=== PATIENT | female | born 1935 | race Two or more races ===

== ENCOUNTER 2017-02-10 20:54 | Inpatient (IN) | payer MEDICAID ==
[~2017-02-10] VITALS: Ht 152.4 cm; Wt 54.0 kg
[2017-02-10] MEDS ORDERED: JANUVIA25 MG ORAL (21:27)
[2017-02-10] MEDS ORDERED: LOSARTAN POTASS50 MG ORAL (21:27)
[2017-02-10] MEDS ORDERED: AMLODIPINE BESY10 MG ORAL (21:27)
[2017-02-10] MEDS ORDERED: DIPHENHYDRAMINE25 M1 ORAL (21:27)
[2017-02-10 22:17] VITALS: BP 157/62
[2017-02-10] MEDS ORDERED: Enalaprilat 2.5mg/2ml Inj IV PRN (22:45)
[2017-02-10] MEDS ORDERED: Nitroglycerin Subl 0.4mg tab (Bottle Of 25) SL PRN (22:45)
[2017-02-10] MEDS ORDERED: Miralax 17gm pkt ORAL PRN (22:45)
[2017-02-10] MEDS ORDERED: DuoNeb 0.5-3(2.5)mg/3ml neb HHN PRN (22:45)
[2017-02-10] MEDS ORDERED: Diltiazem 25mg/5ml IV PRN (22:45)
[2017-02-10 22:56] VITALS: BP 164/88
[2017-02-10 23:09] LABS: BASOPHILS % (AUTO) 1.8 % (0.0-2.0); EOSINOPHILS % (AUTO) 1.7 % (0.0-3.0); LYMPHOCYTES % (AUTO) 22.9 % (20.0-45.0); MEAN CORPUSCULAR HEMOGLOBIN 31.4 PG (27.0-31.0); MEAN CORPUSCULAR VOLUME 87 FL (80-99); MEAN PLATELET VOLUME 6.1 FL (6.5-10.1); MONOCYTES % (AUTO) 11.6 % (1.0-10.0); PLATELET COUNT 265 K/UL (150-450); RED CELL DISTRIBUTION WIDTH 11.6 % (11.6-14.8); WHITE BLOOD COUNT 8.3 K/UL (4.8-10.8)
[2017-02-10 23:13] LABS: APPEARANCE,URINE CLEAR; KETONES,URINE NEGATIVE (NEGATIVE); LEUKOCYTE ESTERASE ,URINE 3+ (NEGATIVE); NITRITE,URINE NEGATIVE (NEGATIVE); PH,URINE 6 (4.5-8.0); PROTEIN,URINE NEGATIVE (NEGATIVE); UROBILINOGEN,URINE NORMAL MG/DL (0.0-1.0)
[2017-02-10 23:14] LABS: TROPONIN I < 0.30 ng/mL (<=0.30)
[2017-02-10 23:16] LABS: AMORPHOUS SEDIMENT,UR FEW /LPF; BACTERIA,URINE FEW /HPF; RBC,URINE 0-2 /HPF (0 - 2); SQUAMOUS EPITHELIAL CELL,UR FEW /LPF (NONE/OCC)
[2017-02-10 23:17] LABS: ALANINE AMINOTRANSFERASE 9 U/L (3-33); ALBUMIN/GLOBULIN RATIO 1.5 (1.0-2.7); ANION GAP 14 (5-15); ASPARTATE AMINO TRANSFERASE 16 U/L (5-40); CALCIUM 9.2 mg/dL (8.6-10.2); CARBON DIOXIDE 27 mEQ/L (20-30); CHLORIDE 90 mEQ/L (98-107); CREATININE 1.2 mg/dL (0.5-0.9); HEMOLYSIS 6; SODIUM 131 mEQ/L (135-145); TOTAL PROTEIN 6.8 g/dL (6.6-8.7)
[2017-02-10 23:28] LABS: CKMB < 1.5 ng/mL (< 3.8)
--- NOTE | 2017-02-10 23:42 | Emergency Room Report ---
History of Present Illness General Chief Complaint: General Complaint Source: Patient, Family Member Present Illness HPI [id number] BIB family members for multiple reasons, requesting admission for "weakness." State that insurance has refused to fill Rx for multiple DM meds, including Januvia. Daughter gave her "a dose of my glipizide" and "her sugar dropped." Here its 140. Apparently daughter did this before as well. She has been compliant with HTN and HLD meds however. Patient has not had her DM meds "for weeks." They have not been able to see her PMD or get in touch with her either. Patient also c/o "cough for a year" but denies COPD/asthma/CHF. Denies fever/chills. Denies chest pain, SOB, abd pain, urinary complaints. Allergies: Coded Allergies: No Known Allergies (Unverified , 02/10/17) Patient History Past Medical History: DM, HTN, other - HLD Past Surgical History: none Pertinent Family History: none Social History: Denies: alcohol use, drug use, smoking Last Menstrual Period: NA Now: No Immunizations: UTD Reviewed Nursing Documentation: PMH: Agreed, PSxH: Agreed Nursing Documentation-PMH Hx Hypertension: Yes - HIGH CHOLESTEROL Hx Diabetes: Yes Review of Systems All Other Systems: negative except mentioned in HPI Physical Exam Vital Signs Date Time Temp Pulse Resp B/P Pulse Ox O2 Delivery O2 Flow Rate FiO2 02/10/17 20:59 98.2 92 18 201/78 98 Room Air Sp02 EP Interpretation: reviewed, abnormal General Appearance: normal inspection, well appearing, no apparent distress, alert, GCS 15, non-toxic Head: normocephalic, atraumatic Eyes: bilateral eye EOMI, bilateral eye PERRL ENT: normal ENT inspection, hearing grossly normal, normal voice Neck: normal inspection, full range of motion, supple, no bony tend Respiratory: normal inspection, lungs clear, normal breath sounds, no respiratory distress, no retraction, other - faint exp wheeze Cardiovascular #1: regular rate, rhythm, no edema Gastrointestinal: normal inspection, normal bowel sounds, non tender, soft, no guarding, no hernia Genitourinary: no CVA tenderness Musculoskeletal: normal inspection, back normal, normal range of motion, Debbie' s Sign negative Neurologic: normal inspection, alert, oriented x3, responsive, safety advisor III-XII nml as tested, motor strength/tone normal, speech normal Psychiatric: normal inspection, judgement/insight normal, mood/affect normal Skin: normal inspection Lymphatic: normal inspection Medical Decision Making Medicare Attestation I Filipe Schmidt MD hereby attest that the medical record entry for date of service, 08/04/16 accurately reflects signatures/notations that I made in my capacity as MD when I treated/diagnosed the above listed Medicare beneficiary. I attest that this information is true, accurate and complete to the best of my knowledge. I understand that any falsification, omission, or concealment of material fact may subject me to administrative, civil, or criminal liability. This patient warrants hospital admission for extreme of age and has a condition that cannot be treated as outpatient. Diagnostic Impression: Primary Impression: Generalized weakness Additional Impression: Hypoglycemia ER Course Uncontrolled DM - Glucose 140 here CKD - Elevated serumCr likely baseline Weakness - H&H stable. No leuks. - CXR and UA unremarkable for infection Endorsed to Dr Estevez for med/surg admission at 1115pm EKG Diagnostic Results Rate: normal Rhythm: NSR ST Segments: no acute changes Rhythm Strip Diag. Results EP Interpretation: yes Rate: 75 Rhythm: NSR, no PVC's, no ectopy Chest X-Ray Diagnostic Results Chest X-Ray Ordered: Yes # of Views/Limited/Complete: 1 View Interpretation: no consolidation, no pneumothorax, no acute cardiopulmonary disease Indication: Chest Pain Impression: No acute disease Date Electronically Signed: Feb 10, 2017 Time Electronically Signed: 23:33 Interpreting ER Physician: Tamia Last Vital Signs Date Time Temp Pulse Resp B/P Pulse Ox O2 Delivery O2 Flow Rate FiO2 02/10/17 22:56 98.9 80 18 164/88 97 Room Air Status: improved Disposition: ADMITTED INPATIENT Condition: Serious Referrals: CAROL LUA,REFERRING (PCP) FILIPE SCHMIDT M.D. Feb 10, 2017 23:42
[2017-02-11 01:30] VITALS: BP 126/64
[2017-02-11 07:08] LABS: INR 0.9 (0.9-1.1); PROTHROMBIN TIME 9.8 SEC (9.30-11.50)
[2017-02-11 07:15] LABS: BASOPHILS % (AUTO) 1.3 % (0.0-2.0); EOSINOPHILS % (AUTO) 3.4 % (0.0-3.0); MEAN CORPUSCULAR HEMOGLOBIN 29.6 PG (27.0-31.0); MEAN CORPUSCULAR HGB CONC 34.1 G/DL (32.0-36.0); MEAN CORPUSCULAR VOLUME 87 FL (80-99); MEAN PLATELET VOLUME 6.5 FL (6.5-10.1); MONOCYTES % (AUTO) 12.6 % (1.0-10.0); NEUTROPHILS % (AUTO) 59.8 % (45.0-75.0); PLATELET COUNT 289 K/UL (150-450); RED BLOOD COUNT 4.61 M/UL (4.20-5.40); RED CELL DISTRIBUTION WIDTH 11.8 % (11.6-14.8)
[2017-02-11 07:31] LABS: CHOLESTEROL 179 mg/dL (< 200); CHOLESTEROL/HDL RATIO 3.1 (3.3-4.4); CRP QUANT < 0.3 mg/dL (< 0.5); HEMOLYSIS 5; LDL CHOLESTEROL (CALC.) 93 mg/dL (60-99); TROPONIN I < 0.30 ng/mL (<=0.30)
[2017-02-11 08:00] VITALS: BP 147/76
[2017-02-11] MEDS: Losartan 50mg tab ORAL SCH (08:18)
[2017-02-11] MEDS: Heparin 5000 units/ml inj SUBQ SCH ×2 (08:19→21:40)
--- NOTE | 2017-02-11 09:26 | Diagnostic Imaging Report ---
Indication: Shortness of breath Technique: One view of the chest Comparison: none Findings: No acute infiltrates, effusions, or congestion. Tortuous calcified aorta. Normal heart size. Upper mediastinum unremarkable. Impression: No acute process.
[2017-02-11 12:00] VITALS: BP 150/71
[2017-02-11 16:00] VITALS: BP 151/74
[2017-02-11 20:00] VITALS: BP 141/80
--- NOTE | 2017-02-11 22:31 | History and Physical ---
History of Present Illness General Reason for Hospitalization: General Complaint Present Illness Allergies: Coded Allergies: No Known Allergies (Unverified , 02/10/17) Medication History Scheduled Amlodipine Besylate* (Amlodipine Besylate*), 10 MG ORAL DAILY, (Reported) Losartan Potassium* (Losartan Potassium*), 100 MG ORAL DAILY, (Reported) Sitagliptin* (Januvia*), 100 MG ORAL DAILY, (Reported) Scheduled PRN Diphenhydramine Hcl* (Diphenhydramine Hcl*), 25 MG ORAL Q12HR PRN for Itching, ( Reported) Patient History Healthcare decision maker Carmela Tafoya (daughter) Resuscitation status Full Code Advanced Directive on File No Physical Exam Last 24 Hour Vital Signs Date Time Temp Pulse Resp B/P Pulse Ox O2 Delivery O2 Flow Rate FiO2 02/11/17 20:44 87 18 Room Air 02/11/17 20:00 97.7 87 18 141/80 97 Room Air 02/11/17 17:22 97.3 02/11/17 16:00 96.8 89 20 151/74 98 Room Air 02/11/17 12:00 97.3 86 20 150/71 95 Room Air 02/11/17 10:02 68 14 Room Air 21 02/11/17 08:18 128/70 02/11/17 08:18 80 127/70 02/11/17 08:00 97.2 86 20 147/76 97 Room Air 02/11/17 01:30 126/64 02/10/17 23:38 98.9 80 18 164/88 97 Room Air 02/10/17 22:56 98.9 80 18 164/88 97 Room Air Intake and Output 02/10/17 02/11/17 19:00 07:00 Intake Total 0 ml Balance 0 ml Intake Oral 0 ml # Voids 2 Laboratory Tests Test 02/10/17 22:40 02/11/17 05:30 White Blood Count 8.3 K/UL (4.8-10.8) 8.0 K/UL (4.8-10.8) Red Blood Count 4.20 M/UL (4.20-5.40) 4.61 M/UL (4.20-5.40) Hemoglobin 13.2 G/DL (12.0-16.0) 13.7 G/DL (12.0-16.0) Hematocrit 36.6 % (37.0-47.0) L 40.1 % (37.0-47.0) Mean Corpuscular Volume 87 FL (80-99) 87 FL (80-99) Mean Corpuscular Hemoglobin 31.4 PG (27.0-31.0) H 29.6 PG (27.0-31.0) Mean Corpuscular Hemoglobin Concent 36.0 G/DL (32.0-36.0) 34.1 G/DL (32.0-36.0) Red Cell Distribution Width 11.6 % (11.6-14.8) 11.8 % (11.6-14.8) Platelet Count 265 K/UL (150-450) 289 K/UL (150-450) Mean Platelet Volume 6.1 FL (6.5-10.1) L 6.5 FL (6.5-10.1) Neutrophils (%) (Auto) 62.0 % (45.0-75.0) 59.8 % (45.0-75.0) Lymphocytes (%) (Auto) 22.9 % (20.0-45.0) 23.0 % (20.0-45.0) Monocytes (%) (Auto) 11.6 % (1.0-10.0) H 12.6 % (1.0-10.0) H Eosinophils (%) (Auto) 1.7 % (0.0-3.0) 3.4 % (0.0-3.0) H Basophils (%) (Auto) 1.8 % (0.0-2.0) 1.3 % (0.0-2.0) Sodium Level 131 mEQ/L (135-145) L Potassium Level 4.0 mEQ/L (3.4-4.9) Chloride Level 90 mEQ/L (98-107) L Carbon Dioxide Level 27 mEQ/L (20-30) Anion Gap 14 (5-15) Blood Urea Nitrogen 21 mg/dL (7-23) Creatinine 1.2 mg/dL (0.5-0.9) H Estimat Glomerular Filtration Rate mL/min (>60) Glucose Level 140 mg/dL (74-106) H Calcium Level 9.2 mg/dL (8.6-10.2) Total Bilirubin 0.6 mg/dL (0.0-1.2) Aspartate Amino Transf (AST/SGOT) 16 U/L (5-40) Alanine Aminotransferase (ALT/SGPT) 9 U/L (3-33) Alkaline Phosphatase 74 U/L (35-104) Total Creatine Kinase 42 U/L (26-140) Creatine Kinase MB < 1.5 ng/mL (< 3.8) Creatine Kinase MB Relative Index Troponin I < 0.30 ng/mL (<=0.30) < 0.30 ng/mL (<=0.30) Pro-B-Type Natriuretic Peptide 131 pg/mL (0-450) Total Protein 6.8 g/dL (6.6-8.7) Albumin 4.1 g/dL (3.5-5.2) Globulin 2.7 g/dL Albumin/Globulin Ratio 1.5 (1.0-2.7) Prothrombin Time 9.8 SEC (9.30-11.50) Prothromb Time International Ratio 0.9 (0.9-1.1) Activated Partial Thromboplast Time 29 SEC (23-33) C-Reactive Protein, Quantitative < 0.3 mg/dL (< 0.5) Triglycerides Level 140 mg/dL (< 150) Cholesterol Level 179 mg/dL (< 200) LDL Cholesterol 93 mg/dL (60-99) HDL Cholesterol 58 mg/dL (> 60) Cholesterol/HDL Ratio 3.1 (3.3-4.4) L Thyroid Stimulating Hormone (TSH) 1.630 uIU/mL (0.300-4.500) Height (Feet): 5 Height (Inches): 0.00 Weight (Pounds): 119 Medications Current Medications Medications (Trade) Dose Ordered Sig/Konrad Route PRN Reason Start Time Stop Time Status Last Admin Dose Admin Acetaminophen (Tylenol) 650 mg Q4H PRN ORAL FEVER 02/10/17 22:45 03/12/17 22:44 02/11/17 16:23 Albuterol/ Ipratropium (DuoNeb 0.5-3(2.5)mg/3ml) 3 ml Q4H PRN HHN Shortness of Breath 02/10/17 22:45 02/15/17 22:44 Amlodipine Besylate (Norvasc) 10 mg DAILY ORAL 02/11/17 09:00 03/13/17 08:59 02/11/17 08:18 Enalaprilat (Vasotec) 2.5 mg Q6H PRN IV sbp more than 160 02/10/17 22:45 03/12/17 22:44 Heparin Sodium (Porcine) (Heparin 5000 units/ml) 5,000 units EVERY 12 HOURS SUBQ 02/11/17 09:00 03/13/17 08:59 02/11/17 21:40 Losartan Potassium (Cozaar) 100 mg DAILY ORAL 02/11/17 09:00 03/13/17 08:59 02/11/17 08:18 Nitroglycerin (Ntg) 0.4 mg Q5M PRN SL Prn Chest Pain 02/10/17 22:45 03/12/17 22:44 Ondansetron HCl (Zofran) 4 mg Q6H PRN IVP Nausea & Vomiting 02/10/17 22:45 03/12/17 22:44 Pantoprazole (Protonix) 40 mg DAILY@0630 ORAL 02/11/17 06:30 03/13/17 06:29 02/11/17 05:51 Polyethylene Glycol (Miralax) 17 gm DAILYPRN PRN ORAL Constipation 02/10/17 22:45 03/12/17 22:44 Temazepam (Restoril) 15 mg HSPRN PRN ORAL Insomnia 02/10/17 22:45 02/17/17 22:44 ARNULFO ANNA Feb 11, 2017 22:31
[2017-02-12] VITALS (7 sets, daily range): BP systolic 122–163; BP diastolic 64–80
[2017-02-12 06:46] LABS: TROPONIN I < 0.30 ng/mL (<=0.30)
[2017-02-12] MEDS: Losartan 50mg tab ORAL SCH (09:05)
[2017-02-12] MEDS: Heparin 5000 units/ml inj SUBQ SCH (09:09)
--- NOTE | 2017-02-13 09:45 | Discharge Summary ---
Discharge Summary Hospital Course Date of Admission Feb 10, 2017 at 23:00 Date of Discharge Feb 12, 2017 at 20:55 Admitting Diagnosis weakness, hypertension HPI Carla Leyva is a 81 year old female who was admitted on Feb 10, 2017 at 23:00 for Weakness,Hypertension Hospital Course [id number] Discharge Discharge Disposition Patient was discharged to Home (01) Discharge Diagnoses: Kaia Singh NP Feb 13, 2017 09:45
--- NOTE | 2017-02-13 12:39 | Cardiology Report ---
APPROVED REPORT EXAM: Two-dimensional and M-mode echocardiogram with Doppler and color Doppler. INDICATION LV function M-Mode DIMENSIONS Left Atrium (MM)2.4 (1.6-4.0cm) Aortic Root3.5 (2.0-3.7cm) Aortic Cusp Exc.1.7 (1.5-2.0cm) M-mode measurements of left ventricle not obtainable due to cardiac position (angle) Normal left ventricular chamber size, systolic function and wall motion. Left ventricular ejection fraction estimated to be 60 %. Moderate left ventricular hypertrophy by 2-D. No evidence of pericardial effusion. All other cardiac chamber sizes are within normal limits. Focal aortic valve sclerosis with adequate cusp excursion. Thickened mitral valve leaflets with normal excursion. Mitral annulus and aortic root calcification. Pulmonic valve not well visualized. Normal tricuspid valve structure. IVC at normal size with physiologic collapse. A color flow and spectral Doppler study was performed and revealed: Moderate aortic regurgitation. Mild mitral regurgitation. Mitral diastolic velocities suggest reduced left ventricular relaxation c/w mild LV diastolic dysfunction (Grade I). Mild tricuspid regurgitation. Tricuspid systolic velocities suggests peak right ventricular systolic pressure of 38 mmHg, consistent with mild pulmonary hypertension. Moderate pulmonic regurgitation present.
--- NOTE | 2017-02-13 12:58 | Cardiology Report ---
APPROVED REPORT EKG Measurement Heart [id number] TX [id number] [id number] Sinus rhythm with short TX Otherwise normal ECG
--- NOTE | 2017-02-13 21:30 | Discharge Summary 2 SIG ---
DATE OF ADMISSION: 02/10/2017 DATE OF DISCHARGE: 02/12/2017 BRIEF HOSPITAL COURSE: The patient is a 81-year-old female, who was brought in by family members for weakness. Per family member, she was not able to refill multiple medications including Januvia and daughter gave her a dose of glipizide and blood sugar dropped. On evaluation at ED, chest x-ray and urinalysis was unremarkable for infection. She had an elevated creatinine. EKG was in normal sinus rhythm. Chest x-ray showed no consolidation, no pneumothorax, and no acute cardiopulmonary disease. She was admitted for hypoglycemia. Blood glucose was monitored. She underwent physical therapy and occupational therapy and was eventually discharged back home. Continue home medications. Blood glucose had been stable. FINAL DIAGNOSES: 1. Hypoglycemia. 2. Generalized weakness. Eulalia Estevez M.D. I have been assigned to dictate discharge summary on this account and I was not involved in the patient's management. Kaia Singh N.P. DR: DAVID JOB#: [id number] CC:
== END 2017-02-12 20:55 | disposition home or self-care (01) | DRG 420 ==
LOC: EMR 21:50 → EDBEDREQ 22:52 → 4E 23:00 → EDBEDREQ 23:07
DX: E11.649 Type 2 diabetes mellitus with hypoglycemia without coma (principal); I10 Essential (primary) hypertension; E78.5 Hyperlipidemia, unspecified; R53.1 Weakness
CPT/HCPCS: 36415; 71010; 80053; 80061; 81003; 82550; 82553; 82962; 83880; 84443; 84484; 85025; 85610; 85730; 86140; 87040; 93005; 93306; 94664